=== PATIENT | female | born 1960 | race Caucasian/White ===

== ENCOUNTER 2023-02-01 06:30 | Day surgery (SDC) | payer OTHER ==
[~2023-02-01] VITALS: Ht 170.2 cm; Wt 92.1 kg
[~2023-02-01 06:30] MED LIST: LEVOTHYROXINE100 MC2 PO; ROSUVASTATIN CA10 MG PO; URSODIOL300 MG PO
[2023-02-01 06:52] VITALS: BP 127/86
--- NOTE | 2023-02-01 07:15 | NUR ---
PT IN OVERALL GOOD SPIRITS. CONSENTED TO PRAYER. PRAYED FOR SUCCESSFUL PROCEDURE AND LEÓN RECOVERY.
--- NOTE | 2023-02-01 08:22 | NUR ---
02/01/23 0822 Mini Wilcox 0817-PATIENT ARRIVED TO PACU ON 2L NC RR EVEN. PATIENT AWAKE DENIES PAIN OR NAUSEA. ABDOMEN SOFT IVF INFUSING. PATIENTS HOB ELEVATED. 0822-PATIENT SLEEPING 2L NC 97% RR EVEN
[2023-02-01 09:03] VITALS: BP 105/85
--- NOTE | 2023-02-02 07:36 | OR ---
[facility] [address], [place] [address] Signed DATE OF OPERATION: 02/01/2023 SURGEON: Bhakti Hamilton MD PREOPERATIVE DIAGNOSIS: Personal history of colonic polyps in 2012 at age 51. POSTOPERATIVE DIAGNOSES: 1. 3 mm polyp at 7 cm in rectum. 2. 6 mm polyp at 70 cm in left colon. 3. 5 mm polyp at 18 cm in distal sigmoid colon. 4. Minimal to moderate left-sided diverticulosis. PROCEDURE: Colonoscopy without biopsy. ESTIMATED BLOOD LOSS: None. INDICATIONS: Selene is a 62-year-old female, asked to see me for followup colonoscopy. She initially thought she had undergone three colonoscopies in her life. However, today, she thinks it has been two colonoscopies. Around age 51 in 2011 she had a colonoscopy at [facility] in [place], [place]. She believes three adenomatous polyps were removed. She then had a followup colonoscopy at age 56 in 2017 while living in [place], [place] at the [facility]. She believes it was negative. She contacted her primary care provider in [place], [place] and unfortunately they have no record of the procedure. She cannot recall the sql report writer name. She said after her , she moved back to [place], [place] to be closer to her children and family. In the meantime, her liver function tests were running high. She went to the Hepatology Department at [facility]. She was diagnosed with primary biliary cholangitis. She receives blood work every three months and an ultrasound every six months. So far, everything has been stable. She ended up seen Hematology Department at [facility] and he diagnosed her with hemochromatosis. 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 Currently, she has no lower GI complaints. She had been sent to the office for followup colonoscopy. I gave her our brochure on colonoscopy. She understands the nature of the test. There is risk including, but not limited to gas bloating, crampy abdominal pain, bleeding, perforation requiring surgery, and missed diagnosis. We also reviewed the need for IV conscious sedation. She had expressed understanding and wished to proceed. Electronically Signed By: BHAKTI HAMILTON MD 02/02/23 0736 PATIENT NAME: SELENE WEISS OPERATIVE REPORT DATE OF : 62 REPORT #: [id number] PHYSICIAN: BHAKTI HAMILTON MD PCP: CHETNA IRVING MD REPORT IS CONFIDENTIAL AND NOT TO BE RELEASED WITHOUT AUTHORIZATION [facility] [address] [place], [place] [address] Signed PROCEDURE IN DETAIL: Selene was taken into our endoscopy suite and placed in the left lateral decubitus position. She was given a total of 10 mg of Versed and 150 mcg of fentanyl. Even then she was frequently awake and talking to us looking at the screen and moaning in pain. In that regard, she would be much better served with monitored anesthesia care and propofol infusion in the future. Fortunately her prep was quite good. In addition, she is not particularly difficult to pass the scope. We did use a little abdominal compression in order to get the scope through a rather long transverse colon and down into a short right colon and into the cecum itself. We could easily see the appendiceal orifice and the ileocecal valve. The scope was then slowly withdrawn. We took pictures throughout for photodocumentation. The above-mentioned polyps were easily removed and destroyed completely with the hot biopsy forceps. She does have diverticula in the transverse and sigmoid colon. They were moderate in number, moderate in size and scattered about. Once in the rectum, the scope was then retroflexed and really there was no additional pathology noted above the anal canal. After this, the gas was suctioned out. The colonoscope removed. Overall, Selene tolerated the procedure well. RECOMMENDATIONS: Selene to follow up my office in 7 to 14 days to review her results. It looks like she will stay on the five year plan. She would benefit from monitored anesthesia care with propofol infusion in the future as described above. Bhakti Hamilton MD [facility] /[id number] cc: DO Bhakti Go MD Electronically Signed By: BHAKTI HAMILTON MD 02/02/23 0736 PATIENT NAME: SELENE WEISS OPERATIVE REPORT DATE OF : 62 REPORT #: [id number] PHYSICIAN: BHAKTI HAMILTON MD PCP: CHETNA IRVING MD REPORT IS CONFIDENTIAL AND NOT TO BE RELEASED WITHOUT AUTHORIZATION [address] [address] Signed Copies: BHAKTI HAMILTON MD ~ Electronically Signed By: BHAKTI HAMILTON MD 02/02/23 0736 PATIENT NAME: SELENE WEISS OPERATIVE REPORT DATE OF : 62 REPORT #: [id number] PHYSICIAN: BHAKTI HAMILTON MD PCP: CHETNA IRVING MD REPORT IS CONFIDENTIAL AND NOT TO BE RELEASED WITHOUT AUTHORIZATION
--- NOTE | 2023-02-06 14:39 | PATH ---
[facility] [address], [place] [address] Signed SPECIMEN(S): A COLON (NOS) POLYP AT 7 CM SPECIMEN(S): B DESCENDING LEFT COLON POLYP SPECIMEN(S): C DISTAL SIGMOID POLYP AT 18 CM SPECIMEN SOURCE: A. COLON (NOS) POLYP AT 7 CM B. DESCENDING LEFT COLON POLYP C. DISTAL SIGMOID POLYP AT 18 CM CLINICAL HISTORY: Hx polyps. Post op: Diverticulosis, polyps. FINAL PATHOLOGIC DIAGNOSIS: A. Colon, polyp at 7 cm: - Hyperplastic polyp (one fragment). B. Descending left colon polyp: - Serrated polyp/adenoma (two fragments). C. Distal sigmoid polyp at 18 cm: - Hyperplastic polyp (two fragments). JVR:cml MICROSCOPIC EXAMINATION: Histologic sections of all submitted blocks are examined by light microscopy. These findings, together with the gross examination, support the pathologic diagnosis. GROSS DESCRIPTION: A. The specimen, labeled and designated "Dick, colon polyp at 7 cm," is received in formalin and consists of one larsen soft tissue fragment, 0.1 cm. Entirely submitted in (A1). B. The specimen, labeled and designated "Dick, descending colon polyp," is received in formalin and consists of two larsen soft tissue fragments, ranging from 0.2 cm. Entirely submitted in (B1). C. The specimen, labeled and designated "Dick, distal sigmoid polyp at 18 cm," is received in formalin and consists of two larsen soft tissue fragments, ranging from 0.2 cm. Entirely submitted in (C1). JS (under the direct supervision of a pathologist) The Gross Description was prepared using a voice recognition system. The report was reviewed for accuracy; however, sound-alike word errors, addition and/or deletions may occur. If there is any question about this report, please contact Client Services. PATIENT NAME: SELENE WEISS PATHOLOGY DATE OF : 62 REPORT #: [id number] PHYSICIAN: NAT TOLLIVER PCP: CHETNA IRVING MD REPORT IS CONFIDENTIAL AND NOT TO BE RELEASED WITHOUT AUTHORIZATION [facility] [address] [place] [id number] Signed PERFORMING LABORATORY: Technical component was performed by [facility], [address] [place] [id number] (CLIA# [id number]). Professional interpretation was performed by [facility] - [facility], [address] [place] [id number] (CLIA#: [id number]). Diagnostician: Sarwat Lara MD Pathologist Electronically Signed 02/06/2023 Copies: ~ PATIENT NAME: SELENE WEISS PATHOLOGY DATE OF : 62 REPORT #: [id number] PHYSICIAN: NAT TOLLIVER PCP: CHETNA IRVING MD REPORT IS CONFIDENTIAL AND NOT TO BE RELEASED WITHOUT AUTHORIZATION
== END 2023-02-01 09:10 | disposition home or self-care (01) ==
LOC: OPS 06:30 → DS 06:30 → OPS 07:30 → DS 07:30 → OPS 09:10
PROVIDERS: ATTEND Colon & Rectal Surgery
PROC: 0DBE8ZX Excision of Large Intestine, Via Natural or Artificial Opening Endoscopic, Diagnostic (ICD-10-PCS; principal; 2023-02-01 07:30)
DX: Z12.11 Encounter for screening for malignant neoplasm of colon (principal); D12.4 Benign neoplasm of descending colon; K63.5 Polyp of colon; K57.30 Diverticulosis of large intestine without perforation or abscess without bleeding; Z86.010 Personal history of colon polyps; E78.00 Pure hypercholesterolemia, unspecified; K74.3 Primary biliary cirrhosis; E78.5 Hyperlipidemia, unspecified; E03.9 Hypothyroidism, unspecified; R73.03 Prediabetes; Z88.1 Allergy status to other antibiotic agents; Z88.7 Allergy status to serum and vaccine; Z88.8 Allergy status to other drugs, medicaments and biological substances; Z79.890 Hormone replacement therapy; Z79.899 Other long term (current) drug therapy
CPT/HCPCS: 99153; G0500; J2250; J3010; J7121